=== PATIENT | female | born 1945 | race Caucasian/White ===

== ENCOUNTER 2018-05-22 06:50 | Day surgery (SDC) | payer MEDICARE, BC ==
[~2018-05-22 06:50] MED LIST: Lactated Ringers 1,000 ML IV SCH; Sodium Chloride 0.9% 10 ML SDV IV PRN; Sodium Chloride 0.9% 10 ML Syringe FLUSH PRN; Sodium Chloride 0.9% 2.5 ML Syringe FLUSH PRN
--- NOTE | 2018-05-22 07:16 | PCM.PREANE ---
Preanesthetic Assessment - Anesthesia/Transfusion/Family Hx Anesthesia History: Prior Anesthesia Without Reaction Family History of Anesthesia Reaction: No Transfusion History: No Prior Transfusion(s) Intubation History: Unknown - Review of Systems General: No Symptoms Pulmonary: No Symptoms Cardiovascular: No Symptoms Gastrointestinal: No Symptoms Neurological: No Symptoms Other: Reports: None - Physical Assessment Height: 1.6 m Weight: 51.256 kg ASA Class: 2 Mental Status: Alert & Oriented x3 Airway Class: Mallampati = 2 Dentition: Reports: Normal Dentition Thyro-Mental Finger Breadths: 3 Mouth Opening Finger Breadths: 3 ROM/Head Extension: Full Lungs: Clear to Auscultation, Normal Respiratory Effort Cardiovascular: Regular Rate, Regular Rhythm - Allergies Allergies/Adverse Reactions: Allergies Allergy/AdvReac Type Severity Reaction Status Date / Time No Known Allergies Allergy Verified 05/17/18 11:35 - Blood Blood Available: No - Anesthesia Plan Pre-Op Medication Ordered: None - Acknowledgements Anesthesia Type Planned: MAC Pt an Appropriate Candidate for the Planned Anesthesia: Yes Alternatives and Risks of Anesthesia Discussed w Pt/Guardian: Yes Pt/Guardian Understands and Agrees with Anesthesia Plan: Yes PreAnesthesia Questionnaire HEENT History: Gastrointestinal History: Reports: Diverticulosis (diverticulitis in february of this year, 12-13 bowel movements per day) - Past Surgical History GI Surgical History: Reports: None Female Surgical History: Reports: Hysterectomy, Oophorectomy - SUBSTANCE USE Smoking Status *Q: Never Smoker Recreational Drug Use History: No - HOME MEDS Home Medications: Home Meds L.acidoph,Paracasei, B.lactis [Probiotic] 1 cap PO DAILY 05/17/18 [History] Multivitamin [Multi-Vitamin Daily] 1 tab PO DAILY 05/17/18 [History] - CURRENT (IN HOUSE) MEDS Current Meds: Current Medications Lactated Ringer's (Ringers, Lactated) 1,000 mls @ 125 mls/hr IV ASDIRECTED MIA Sodium Chloride (Saline Flush) 10 ml FLUSH ASDIRECTED PRN PRN Reason: Keep Vein Open Sodium Chloride (Saline Flush) 2.5 ml FLUSH ASDIRECTED PRN PRN Reason: Keep Vein Open Sodium Chloride (Saline Flush) 10 ml FLUSH ASDIRECTED PRN PRN Reason: Keep Vein Open Sodium Chloride (Saline Flush) 2.5 ml FLUSH ASDIRECTED PRN PRN Reason: Keep Vein Open Sodium Chloride (Normal Saline) 10 ml IV ASDIRECTED PRN PRN Reason: IV Use
[2018-05-22] MEDS ORDERED: Propofol 200 MG/20 ML SDV ONE (08:34)
--- NOTE | 2018-05-22 09:20 | PCM.OPNOTE ---
<Diane Hart - Last Filed: 05/22/18 09:18> - General Post-Op/Procedure Note Date of Surgery/Procedure: 05/22/18 Operative Procedure(s): colonoscopy Findings: Inflammation to sigmoid colon and rectum, inflammation more pronounced in rectum Pre Op Diagnosis: Change in bowel movements, diarrhea, positive C.Diff Post-Op Diagnosis: Change in bowel movements, diarrhea, positive C. Diff Anesthesia Technique: MAC Primary Surgeon: Afia Baer Machine Shop Supervisor: Diane Hart Condition: Good <Afia Baer - Last Filed: 05/22/18 09:29> - General Post-Op/Procedure Note Pre Op Diagnosis: Diverticulosis Post-Op Diagnosis: Diverticulosis Anesthesia Technique: MAC
--- NOTE | 2018-05-22 10:04 | PCM48HPAN ---
Post Anesthesia Note - EVALUATION WITHIN 48HRS OF ANESTHETIC Vital Signs in Normal Range: Yes Patient Participated in Evaluation: Yes Respiratory Function Stable: Yes Airway Patent: Yes Cardiovascular Function Stable: Yes Hydration Status Stable: Yes Pain Control Satisfactory: Yes Nausea and Vomiting Control Satisfactory: Yes Mental Status Recovered: Yes Resp Rate: 12 - COMMENTS/OBSERVATIONS Free Text/Narrative:: no anesthesia problems
--- NOTE | 2018-05-22 16:49 | OR ---
SURGEON: AFIA BAER MD DATE OF PROCEDURE: 05/22/2018 PREOPERATIVE DIAGNOSES: Chronic diarrhea, Clostridium difficile infection, diverticulosis. POSTOPERATIVE DIAGNOSES: 1. Diverticulosis. 2. Colitis. PROCEDURE PERFORMED: Diagnostic colonoscopy. ENDOSCOPIST: Afia Baer MD. ANESTHESIA: MAC. INSTRUMENT USED: Olympus colonoscope. EXTENT OF EXAM: To the cecum. PREPARATION: Good. LIMITATIONS: None. INDICATION FOR EXAMINATION: The patient is a 72-year-old female, who was diagnosed with diverticulitis earlier this year. She underwent antibiotic regimen, but afterwards has had chronic ongoing diarrhea. I performed stool studies that showed a positive C. difficile infection. She was treated with antibiotics and her symptoms have improved. She finished the antibiotics several days before her colonoscopy prep. The patient and I discussed the need for diagnostic colonoscopy. I explained the procedure; expected perioperative course; and risks including bleeding, infection, damage to surrounding structures including perforation. The patient verbalized understanding and wishes to proceed. PROCEDURE IN DETAIL: The patient was brought into the endoscopy suite and placed in the left lateral decubitus position. A time-out was completed verifying the patient's name, age, date of , allergies, and procedure to be performed. Monitored anesthesia care was induced and continuous oxygen was provided via nasal cannula throughout the procedure. After adequate sedation was achieved, a digital rectal exam was performed. This exam was within normal limits. A well-lubricated colonoscope was inserted in the rectum and advanced under direct visualization to the level of cecum. The patient was immediately noted to have signs of inflammation and possible pseudomembranous colitis of the rectum and sigmoid colon. Great care was taken to gently advance the scope to the level of the cecum. The cecum was identified by both visual and anatomic landmarks. A photograph was taken of the cecal cap; however, I did not attempt to retroflex the scope within the cecum due to looping of the scope more proximally. The scope was then fully withdrawn while examining the color, texture, anatomy, and integrity of the mucosa from the cecum to the anal canal. The patient was noted to have diverticulosis. Random biopsies were taken both in the descending colon, the sigmoid colon, as well as the rectum and sent to Pathology. No polyps were found. The scope was then brought into the rectum. The rectum appeared to be the most inflamed portion of her colon. A photograph of this was taken. I made one attempt at retroflexing the scope in the rectum; however, the patient had a small narrow pelvis and a small rectum. Given the amount of inflammation in the rectum, I did not want to risk any trauma to the colon itself and so I did not retroflex the scope within the rectum. I did take time coming through the anal canal to look for any abnormalities and none were noted. The scope was removed and the procedure terminated. Cecum to anus time was 13 minutes. The patient tolerated the procedure well and was taken to PACU in stable condition. ENDOSCOPIC DIAGNOSES: 1. Diverticulosis. 2. Colitis. RECOMMENDATIONS: Follow up in clinic in 2 weeks. WILBUR ROTHMAN /[id number]
== END 2018-05-22 10:00 | disposition home or self-care (01) ==
LOC: MW.SDS 06:50
PROVIDERS: ATTEND Surgery
DX: K52.9 Noninfective gastroenteritis and colitis, unspecified (principal); K57.30 Diverticulosis of large intestine without perforation or abscess without bleeding; K62.1 Rectal polyp; Z87.19 Personal history of other diseases of the digestive system
CPT/HCPCS: 45378; J2704; J7120; 88305

== ENCOUNTER 2025-01-08 23:30 | Day surgery (SDC) | payer MEDICARE, BC ==
[2025-01-09] MEDS: Ondansetron 4 MG/2 ML SDV IVPUSH ONE (00:01)
[2025-01-09] MEDS: Lidocaine 2% Viscous Solution 15 ML UD PO ONE (00:01)
[2025-01-09] MEDS: Sucralfate Suspension 1 GM/10 ML Cup PO ONE (00:01)
[2025-01-09 00:10] LABS: BASOPHILS ABSOLUTE AUTO 0.04 K/uL (0.00-0.20); BASOPHILS PERCENT AUTO 0.4 % (0.0-1.0); EOSINOPHILS ABSOLUTE AUTO 0.05 K/uL (0.00-0.45); EOSINOPHILS PERCENT AUTO 0.4 % (0.0-6.0); IMMATURE GRAN ABSOLUTE AUTO 0.03 K/uL (0.00-0.05); IMMATURE GRAN PERCENT AUTO 0.3 % (0.0-0.4); LYMPHOCYTES ABSOLUTE AUTO 1.99 K/uL (1.00-4.80); LYMPHOCYTES PERCENT AUTO 17.6 % (24.0-44.0); MEAN PLATELET VOLUME 9.0 fL (9.4-12.3); MONOCYTES ABSOLUTE AUTO 0.57 K/uL (0.00-0.80); MONOCYTES PERCENT AUTO 5.0 % (0.0-8.0); NEUTROPHILS ABSOLUTE AUTO 8.65 K/uL (1.80-7.70); NEUTROPHILS PERCENT AUTO 76.3 % (41.0-71.0); NRBC ABSOLUTE 0.00 K/uL (0.00-0.02); NRBC PERCENT 0.0 /100WBC (0.0-0.2); PLATELET COUNT,PLT 150 K/uL (150-400); RED BLOOD CELL COUNT 4.34 M/uL (4.10-5.30); WHITE BLOOD CELL COUNT,WBC 11.33 K/uL (3.9-11.3)
[2025-01-09 00:37] LABS: A/G RATIO 1.2 (0.9-1.6); ALANINE AMINOTRANSFERASE,ALT 30 IU/L (14-63); ASPARTATE AMNIOTRANSFERASE,AST 28 IU/L (15-37); BILIRUBIN TOTAL 1.2 mg/dL (0.2-1.0); BLOOD UREA NITROGEN,BUN 18 mg/dL (7.0-18.0); CARBON DIOXIDE,CO2 26.6 mmol/L (21.0-32.0); CHLORIDE,CL 90 mmol/L (98-107); CREATININE 0.7 mg/dL (0.6-1.0); GLUCOSE RANDOM 115 mg/dL (74-106); POTASSIUM,K 3.8 mmol/L (3.5-5.1); PROTEIN TOTAL,TP 6.9 g/dL (6.4-8.2); SODIUM,NA 123 mmol/L (136-145)
[2025-01-09 00:45] LABS: ESTIMATED GFR 88 mL/min (>60)
[2025-01-09] MEDS: Iopamidol 755 MG/ML 500 ML Multipack Bottle IVPUSH STA (02:17)
[2025-01-09 03:07] LABS: BLOOD UREA NITROGEN,BUN 17 mg/dL (7.0-18.0); CARBON DIOXIDE,CO2 21.3 mmol/L (21.0-32.0); CHLORIDE,CL 92 mmol/L (98-107); CREATININE 0.5 mg/dL (0.6-1.0); GLUCOSE RANDOM 103 mg/dL (74-106); POTASSIUM,K 3.8 mmol/L (3.5-5.1); SODIUM,NA 124 mmol/L (136-145)
[2025-01-09 03:11] LABS: ESTIMATED GFR 96 mL/min (>60)
[2025-01-09] MEDS ORDERED: Propofol 200 MG/20 ML SDV ONE (04:27)
[2025-01-09] MEDS ORDERED: Succinylcholine/Sod PF 100 MG/5 ML SYRINGE IV ONE (04:27)
[2025-01-09] MEDS ORDERED: dexmedeTOMIDine HCl 200 MCG/2 ML SDV ONE (04:28)
[2025-01-09] MEDS ORDERED: Dexamethasone 4 MG/ML 5 ML MDV ONE (04:54)
[2025-01-09] MEDS ORDERED: Ondansetron 4 MG/2 ML SDV ONE (05:02)
[2025-01-09] MEDS ORDERED: ePHEDrine 50 MG/ML SDV ONE (05:37)
== END 2025-01-09 ==
LOC: MW.ED 23:30 → MW.SDS 01-09 04:01 → MERGE 01-09 04:01 → MW.MS 01-09 04:03 → MW.SDS 01-09 04:03 → MW.ICU 01-09 06:05 → MW.MS 01-09 06:05
PROVIDERS: ATTEND Surgery
DX: T18.128A Food in esophagus causing other injury, initial encounter (principal); E78.00 Pure hypercholesterolemia, unspecified; E04.1 Nontoxic single thyroid nodule; Z79.899 Other long term (current) drug therapy; F17.210 Nicotine dependence, cigarettes, uncomplicated
CPT/HCPCS: 36415; 43235; 70360; 70491; 71045; 80048; 80053; 85025; 86850; 86900; 86901; A9270; J0330; J1100; J1308; J1610; J2405; J2543; J2704; J7030; Q9967; 00731; 99284; J3490